=== PATIENT | female | born 1995 | race Caucasian/White ===

== ENCOUNTER 2016-09-08 10:49 | Emergency (ER) | payer OTHER ==
[2016-09-08] MEDS ORDERED: Ketorolac 30 MG/ML SDV IVPUSH ONE (11:11)
[2016-09-08] MEDS ORDERED: Promethazine 25 MG/ML SDV IM ONE (11:11)
[2016-09-08] MEDS ORDERED: Ondansetron 4 MG in Sodium Chloride 0.9% 100 ML IV ONE (11:12)
[2016-09-08] MEDS ORDERED: Sodium Chloride 0.9% 1,000 ML IV SCH (11:15)
--- NOTE | 2016-09-08 11:20 | EDM.PDOC ---
ED HPI GI/ABDOMINAL - General Chief Complaint: Gastrointestinal Problem Stated Complaint: nausea vomiting ? 10 -20 X this am abd pain started at 7am sharp cramping all over has had same s/s problems x years 2nd abd migrains was inpt 2wks ago [employer] same s/s and dehydration ate supper last night no problems neg fever back pain chills Time Seen by Provider: 09/08/16 11:10 Source of Information: Reports: Patient History Limitations: Reports: No limitations - History of Present Illness Symptom Onset Date: 09/08/16 Symptom Onset Time: 07:00 Location: generalized Quality: Reports: cramping, throbbing Severity: severe (not worse pain she has ever had in abd 03/08 today) Improves with: Denies: vomiting, lying down Worsens with: Reports: vomiting Context: Denies: sick contact, bad/questionable food, out of country travel, recent surgery Associated Symptoms (-Female): Reports: denies other symptoms - Related Data Allergies/ADRs: Allergies Allergy/AdvReac Type Severity Reaction Status Date / Time metoclopramide [From Reglan] Allergy Muscle Verified 09/08/16 11:56 Aches Home Meds: Home Meds Ketorolac [Toradol] 10 mg PO Q6H #12 tablet 09/08/16 [Rx] Promethazine [Phenergan] 25 mg PO Q4H #12 tablet 09/08/16 [Rx] Past Medical History HEENT History: Reports: None Cardiovascular History: Reports: None Respiratory History: Reports: None Gastrointestinal History: Reports: Bowel obstruction (chronic abd migrains 1 x SBO s/p surgery as teenager with bowel stimulator placed no HX resection has had J tube and nilay). Denies: Celiac disease, Cholelithiasis, Chronic constipation, Chronic diarrhea, Diverticulosis, Inflammatory bowel disease, Pancreatitis (abd migrains 1 x SBO) Genitourinary History: Reports: Acute renal failure [employer] History: Reports: None Musculoskeletal History: Reports: None Psychiatric History: Reports: None Hematologic History: Reports: None. Denies: Anemia, Anticoagulation therapy, Bleeding disorder Immunologic History: Reports: None - Past Surgical History GI Surgical History: Reports: Cholecystectomy Social & Family History - Family History GI: Reports: Other (see below) (abd migrains with mother brother) ED ROS GENERAL - Review of Systems Review Of Systems: See Below Constitutional: Denies: fever, chills, malaise, weakness, fatigue, diaphoresis, decreased appetite, weight loss HEENT: Reports: No symptoms Respiratory: Reports: no symptoms Cardiovascular: Reports: No symptoms Endocrine: Reports: no symptoms GI/Abdominal: Reports: Abdominal pain, Nausea, Vomiting. Denies: Anorexia, Black stool, Bloody stool, Constipation, Diarrhea, Decreased appetite, Difficulty swallowing, Distension, Stool incontinence : Reports: no symptoms Musculoskeletal: Reports: no symptoms Skin: Reports: no symptoms Neurological: Reports: no symptoms. Denies: dizziness, headache, numbness Psychiatric: Reports: No symptoms Hematologic/Lymphatic: Reports: no symptoms Immunologic: Reports: no symptoms ED EXAM, GI/ABD - Physical Exam Exam: See Below Exam Limited By: No limitations General Appearance: alert, WD/WN, anxious, mild distress Eyes: bilateral: normal appearance, EOMI Throat/Mouth: Normal inspection, Normal lips, Normal teeth, Normal gums, Normal oropharynx (mmm) Neck: normal inspection, non-tender, full range of motion. No: lymphadenopathy (L) Respiratory/Chest: no respiratory distress, lungs clear, normal breath sounds, no accessory muscle use. No: crackles Cardiovascular: normal peripheral pulses, regular rate, rhythm, no edema, no gallop, no murmur GI/Abdominal: normal bowel sounds, soft, non tender, no organomegaly, no distention, no abnormal bruit, no mass. No: hyperactive bowel sounds, tenderness, guarding, rebound, rigidity, hepatomegaly, McBurney's sign, psoas sign, Rovsing's sign (neg heel slap pelvic rock ) Back Exam: full range of motion. No: CVA tenderness (R), decreased range of motion Extremities: normal inspection, normal range of motion, non-tender, no pedal edema Neurological: alert, oriented, CN II-XII intact, normal cognition, no motor/ sensory deficits Psychiatric: tearful Skin Exam: Warm, Dry, Intact, Normal color, No rash Lymphatic: no adenopathy Course - Vital Signs Text/Narrative:: phenergan 25mg IM Dilaudid 1mg IM will check cbc bmp urine hcg unable to obtain IV will TX IM with meds and recheck pt Last Recorded V/S: Last Vital Signs Temp 36.4 C 09/08/16 11:00 Pulse 93 09/08/16 11:00 Resp 16 09/08/16 11:00 BP 163/100 H 09/08/16 11:00 Pulse Ox 98 09/08/16 11:00 - Orders/Labs/Meds Orders: Active Orders 24 hr Category Date Time Status HCG URINE, POC [POC] Urgent Lab 09/08/16 11:46 Uncollected UA W/MICROSCOPIC [URIN] Stat Lab 09/08/16 11:43 Uncollected Labs: Laboratory Tests 09/08/16 09/08/16 Range/Units 11:58 11:58 WBC 6.3 (4.0-10.0) x10^3/uL RBC 4.40 (4.00-5.50) x10^6/uL Hgb 13.7 (12.0-16.0) g/dL Hct 40.2 (33.0-47.0) % MCV 91.4 (78.0-93.0) fL MCH 31.1 (26.0-32.0) pg MCHC 34.1 (32.0-36.0) g/dL RDW Coeff of Adilson 13.7 (10.0-15.0) % Plt Count 234 (130-400) x10^3/uL Add Manual Diff Yes Neutrophils % (Manual) 73 (50-80) % Lymphocytes % (Manual) 23 L (25-50) % Monocytes % (Manual) 4 (2-11) % Platelet Estimate Adequate Sodium 142 (136-145) mmol/L Potassium 3.8 (3.5-5.1) mmol/L Chloride 105 (98-107) mmol/L Carbon Dioxide 25 (21-32) mmol/L BUN 8 (7-18) mg/dL Creatinine 0.8 (0.55-1.02) mg/dL Est Cr Clr Drug Dosing 97.67 mL/min Estimated GFR (MDRD) > 60 Glucose 104 (74-106) mg/dL Calcium 9.1 (8.5-10.1) mg/dL Meds: Medications Discontinued Medications Generic Name Dose Route Start Last Admin Trade Name Freq PRN Reason Stop Dose Admin Hydromorphone HCl 1 mg 09/08/16 11:28 09/08/16 11:38 Dilaudid IM 09/08/16 11:29 1 mg ONETIME ONE Administration Hydromorphone HCl 1 mg 09/08/16 12:42 09/08/16 12:46 Dilaudid IM 09/08/16 12:43 1 mg ONETIME ONE Administration Ondansetron HCl 4 mg/ Sodium 102 mls @ 400 mls/hr 09/08/16 11:12 Chloride IV 09/08/16 11:27 ONETIME ONE Sodium Chloride 1,000 mls @ 1,000 mls/hr 09/08/16 11:15 Normal Saline IV ASDIRECTED [facility] Ketorolac Tromethamine 30 mg 09/08/16 11:11 Toradol IVPUSH 09/08/16 11:12 ONETIME ONE Ondansetron HCl 4 mg 09/08/16 12:42 09/08/16 12:46 Zofran IM 09/08/16 12:43 4 mg ONETIME ONE Administration Promethazine HCl 25 mg 09/08/16 11:11 09/08/16 11:20 Phenergan IM 09/08/16 11:12 25 mg ONETIME ONE Administration Departure - Departure Time of Disposition: 13:30 Disposition: Home, Self-Care 01 Condition: good Clinical Impression: Abdominal migraine, Nausea and vomiting Prescriptions: Ketorolac [Toradol] 10 mg PO Q6H #12 tablet Promethazine [Phenergan] 25 mg PO Q4H #12 tablet Instructions: Abdominal Migraine, Pediatric Referrals: Manuel Alvarez MD [Primary Care Provider] - Forms: ED Department Discharge Additional Instructions: drink small amouts fluid 3-4 OZ every 2-3 hrs bland diet as tolorated return to ER if signs symptoms get worse or anything changes - My Orders Last 24 Hours: My Active Orders 09/08/16 11:43 UA W/MICROSCOPIC [URIN] Stat 09/08/16 11:46 HCG URINE, POC [POC] Urgent - Assessment/Plan Last 24 Hours: My Active Orders 09/08/16 11:43 UA W/MICROSCOPIC [URIN] Stat 09/08/16 11:46 HCG URINE, POC [POC] Urgent
[2016-09-08] MEDS ORDERED: HYDROmorphone 1 MG/ML Syringe IM ONE ×2 (11:28→12:42)
[2016-09-08 12:09] LABS: HEMATOCRIT 40.2 % (33.0-47.0); HEMOGLOBIN 13.7 g/dL (12.0-16.0); MEAN CORPUSCULAR HEMOGLOBIN 31.1 pg (26.0-32.0); MEAN CORPUSCULAR HGB CONC 34.1 g/dL (32.0-36.0); MEAN CORPUSCULAR VOLUME 91.4 fL (78.0-93.0); RDW CV 13.7 % (10.0-15.0)
[2016-09-08 12:13] VITALS: BP 163/100
[2016-09-08 12:17] LABS: CALCIUM 9.1 mg/dL (8.5-10.1); CHLORIDE,CL 105 mmol/L (98-107); CREATININE 0.8 mg/dL (0.55-1.02); EST CRCL DRUG DOSING (CG) 97.67 mL/min; ESTIMATED GFR > 60; GLUCOSE RANDOM 104 mg/dL (74-106)
[2016-09-08 12:19] LABS: SEG NEUTROPHILS PERCENT MAN 73 % (50-80); TOTAL CELLS COUNTED 100
[2016-09-08] MEDS ORDERED: Ondansetron 4 MG/2 ML SDV IM ONE (12:42)
[2016-09-08 13:59] LABS: BILIRUBIN,URINE SMALL (NEGATIVE); GLUCOSE,URINE NEGATIVE (NEGATIVE); KETONES,URINE 15 mg/dL (NEGATIVE); LEUKOCYTE ESTERASE,URINE NEGATIVE (NEGATIVE); NITRITE,URINE NEGATIVE (NEGATIVE); OCCULT BLOOD,URINE TRACE-LYSED (NEGATIVE); PROTEIN,URINE 30 mg/dL (NEGATIVE)
[2016-09-08 14:04] LABS: HCG URINE CONTROL ACCEPTABLE
[2016-09-08 14:08] LABS: APPEARANCE,URINE CLOUDY (CLEAR)
[2016-09-08 14:09] LABS: BACTERIA,URINE MODERATE /HPF (NEGATIVE); MUCUS,URINE MANY /LPF (NEGATIVE); RBC,URINE 0-5 /HPF (NOT SEEN); WBC,URINE 0-5 /HPF (NOT SEEN)
== END 2016-09-08 14:19 | disposition home or self-care (01) ==
LOC: VM.ED 10:49
DX: G43.D0 Abdominal migraine, not intractable (principal); R11.2 Nausea with vomiting, unspecified; Z88.8 Allergy status to other drugs, medicaments and biological substances
CPT/HCPCS: 36415; 80048; 81001; 81025; 85025; 96372; 99284; J1170; J2405; J2550; J1885; J7030; J7050

== ENCOUNTER 2017-05-01 11:42 | Emergency (ER) | payer OTHER ==
[2017-05-01] MEDS ORDERED: Sodium Chloride 0.9% 10 ML Syringe FLUSH PRN (12:07)
[2017-05-01 12:10] VITALS: BP 133/106
--- NOTE | 2017-05-01 21:38 | ER ---
Date of Service: 05/01/2017 SUBJECTIVE: Elayne presents to the emergency room with complaints of severe abdominal pain. The patient was yelling on arrival to the ER stating that she wanted her pain treated. The patient was vomiting and drooling on herself but on the floor when provided an emesis basin. She states that she has a history of abdominal migraines and states that she does not wish to have any lab tests or any other evaluations and states that she wants Dilaudid and Valium to help with her pain. The patient states that she is not experiencing any fever or chills and again states that she is not experiencing any new symptoms but again refuses to have any other workup to determine if she has any other potentially life-threatening or serious conditions other than her abdominal migraine that is causing her discomfort. PAST MEDICAL HISTORY: Abdominal migraines. MEDICATIONS: Toradol and Phenergan. ALLERGIES: Reglan. PHYSICAL EXAMINATION: General: This is a 21-year-old female patient, who is in severe amount of distress yelling and crying in the trauma room. She refuses any physical examination. She did allow her vital signs to be taken. Vital Signs: Blood pressure is 133/106, temp is 35.9, respiratory rate 22, heart rate is 90. Skin: Warm, pink, and dry. No other physical examination was allowed. ASSESSMENT: Abdominal pain of unknown etiology. PLAN: I did discuss with the patient that I would be willing to treat her pain if she would allow me to do more of a workup. I am aware of her past medical problems, but I have never seen this patient before and due to the obvious severity of her symptoms, she will require at least a cursory workup and physical examination, which she will not allow. I subsequently had the patient sign out AMA. She was alert of the time, date, and place and stated that she would return to the emergency room if she wished for further evaluation and treatment. The patient states that she was going to travel to [facility] to be seen. She states that she knows the providers there and wants to be treated there as they are aware of her condition. All questions were answered. MWK: 05/01/2017 19:29:13 MODL: 05/01/2017 21:31:35 /[id number]
--- NOTE | 2017-05-05 08:10 | ER ---
Date of Service: 05/01/2017 REVIEW OF SYSTEMS: Complains of severe nausea, vomiting, and abdominal pain. Please see history of present illness. She denies any melena, hematochezia, or hematemesis. She states this is similar to previous abdominal migraine she has had in the past. She denies any chest pain or shortness of breath. MWK: 05/05/2017 05:13:35 MODL: 05/05/2017 05:45:14 /[id number]
== END 2017-05-01 12:21 | disposition left against medical advice (07) ==
LOC: VM.ED 11:42
DX: R10.9 Unspecified abdominal pain (principal); G43.D0 Abdominal migraine, not intractable; Z88.8 Allergy status to other drugs, medicaments and biological substances
CPT/HCPCS: 99283